=== PATIENT | female | born 1980 | race Caucasian/White ===

== ENCOUNTER → 2018-06-05 08:58 | Outpatient (POV) | payer MEDICAID, SELFPAY ==
[2018-06-05 09:23] VITALS: BP 137/77; PULSE 79; RESP 18; O2SAT 99
--- NOTE | 2018-06-05 09:42 | HMH.PMCON ---
Assessment and Plan (1) Diabetic neuropathy Current visit: Yes Status: Chronic Qualifiers: Diabetes mellitus type: type 2 Category: Medical Code(s): E11.40 - Type 2 diabetes mellitus with diabetic neuropathy, unspecified - Assessment and plan all Dx Assessment and Plan for all problems:: We will start her on gabapentin 300 mg 1 p.o. 4 times daily we will see her back in 2 months and reassess her symptoms at that time. [facility] #[id number] reviewed and appropriate. This note was dictated using voice recognition software and may contain errors or omissions HPI - Data of Consult Consult date: 06/05/18 Requesting Physician: Jeanette Dey APRN Primary Care Provider: Cassia Kerr - Consult Narrative Reason for consult: Neuropathy History of present illness: Ms. Vee is a 38 year old female who presents today for consultation in regards bilateral neuropathy. Patient was diagnosed at 16 with type 2 diabetes. Patient did not have good control of her sugars. Her last A1c was 11.7. Patient was started on gabapentin and this did well for her. Patient would like to continue with this. Patient states her control of her her sugars have improved immensely. CC: Jeanette Dey APRN [facility] History I have reviewed the patient's past medical history: Yes Medical History: Reports:: Diabetes Mellitus Type 2 Other Surgeries: Yes: Cholecystectomy, , Hysterectomy-Total - *Social History Smoking Status: Current every day smoker Tobacco Type: cigarettes # Packs/Day (cigarettes): 1 Alcohol Intake: never Occupational Status: other Housing: house - Psychiatric History Expresses thoughts of harming self/others: None Suicide Plan Description: No Plan *Family Hx:: Unable to obtain Review of Systems - Review of Systems ROS General: no recent weight change, no fever, no sleep disturbances Respiratory: no cough, no shortness of air, no recurring pulmonary infections Cardiovascular/Peripheral Vascular: No chest pain, No palpitations, no edema, no shortness of breath. Gastrointestinal: no incontinence, normal bowel movements reported Genitourinary: no incontinence Musculoskeletal: Bilateral foot pain Psychiatric: normal mood/ affect Neurological: [denies weakness in extremities], [denies balance issues] Objective Vital signs: Pulse Resp BP Pulse Ox 79 18 137/77 99 06/05/18 09:23 06/05/18 09:23 06/05/18 09:23 12/11/18 09:23 Narrative: Physical Exam General: Alert and oriented x3, no acute distress, pleasant and cooperative, [on room air] Lungs: Resps E/U, Symmetrical chest expansion, Eyes: PERRL Musculoskeletal: Range of motion bilateral feet somewhat guarded secondary to pain, deep tendon reflexes normal, strength in upper and lower extremities [5/5], slightly antalgic gait noted Neurological: speech clear, junior project manager equal, no gross sensory deficits Opioid Risk Tool - Opioid Risk Tool-Female Family hx alcohol abuse: N Family hx illegal drugs: N Family hx rx drug abuse: N Personal hx alcohol abuse: N Personal hx illegal drugs: N Personal hx rx drug abuse: Y Age: 16-45 Hx of sexual abuse: N Mental health issues-ADD,OCD,Bipolar, etc: N Hx of depression: Y Female Risk Score: 6
--- NOTE | 2018-06-05 09:45 | P.CONS_ITS ---
Assessment and Plan (1) Diabetic neuropathy Current visit: Yes Status: Chronic Qualifiers: Diabetes mellitus type: type 2 Category: Medical Code(s): E11.40 - Type 2 diabetes mellitus with diabetic neuropathy, unspecified - Assessment and plan all Dx Assessment and Plan for all problems:: We will start her on gabapentin 300 mg 1 p.o. 4 times daily we will see her back in 2 months and reassess her symptoms at that time. [facility] #[id number] reviewed and appropriate. This note was dictated using voice recognition software and may contain errors or omissions HPI - Data of Consult Consult date: 06/05/18 Requesting Physician: Jeanette Dey APRN Primary Care Provider: Cassia Kerr - Consult Narrative Reason for consult: Neuropathy History of present illness: Ms. Vee is a 38 year old female who presents today for consultation in regards bilateral neuropathy. Patient was diagnosed at 16 with type 2 diabetes. Patient did not have good control of her sugars. Her last A1c was 11.7. Patient was started on gabapentin and this did well for her. Patient would like to continue with this. Patient states her control of her her sugars have improved immensely. CC: Jeanette Dey APRN [facility] History I have reviewed the patient's past medical history: Yes Medical History: Reports:: Diabetes Mellitus Type 2 Other Surgeries: Yes: Cholecystectomy, , Hysterectomy-Total - *Social History Smoking Status: Current every day smoker Tobacco Type: cigarettes # Packs/Day (cigarettes): 1 Alcohol Intake: never Occupational Status: other Housing: house - Psychiatric History Expresses thoughts of harming self/others: None Suicide Plan Description: No Plan *Family Hx:: Unable to obtain Review of Systems - Review of Systems ROS General: no recent weight change, no fever, no sleep disturbances Respiratory: no cough, no shortness of air, no recurring pulmonary infections Cardiovascular/Peripheral Vascular: No chest pain, No palpitations, no edema, no shortness of breath. Gastrointestinal: no incontinence, normal bowel movements reported Genitourinary: no incontinence Musculoskeletal: Bilateral foot pain Psychiatric: normal mood/ affect Neurological: [denies weakness in extremities], [denies balance issues] Objective Vital signs: Pulse Resp BP Pulse Ox 79 18 137/77 99 06/05/18 09:23 06/05/18 09:23 06/05/18 09:23 12/11/18 09:23 Narrative: Physical Exam General: Alert and oriented x3, no acute distress, pleasant and cooperative, [on room air] Lungs: Resps E/U, Symmetrical chest expansion, Eyes: PERRL Musculoskeletal: Range of motion bilateral feet somewhat guarded secondary to pain, deep tendon reflexes normal, strength in upper and lower extremities [5/5], slightly antalgic gait noted Neurological: speech clear, flue lining dipper equal, no gross sensory deficits Opioid Risk Tool - Opioid Risk Tool-Female Family hx alcohol abuse: N Family hx illegal drugs: N Family hx rx drug abuse: N Personal hx alcohol abuse: N Personal hx illegal drugs: N Personal hx rx drug abuse: Y Age: 16-45 Hx of sexual abuse: N Mental health issues-ADD,OCD,Bipolar, etc: N Hx of depression: Y Female Risk Score: 6
== END ==
PROVIDERS: PCP Family Medicine; Visit Provider Clinical Nurse Specialist Family Health
DX: E11.40 Type 2 diabetes mellitus with diabetic neuropathy, unspecified (principal)
CPT/HCPCS: 99202

== ENCOUNTER → 2018-08-07 09:16 | Outpatient (POV) | payer MEDICAID, SELFPAY ==
--- NOTE | 2018-08-07 09:33 | P.CONS_ITS ---
[facility] Pain Management SOAP Note Subjective:: Patient is a pleasant 38-year-old white female who presents today for follow-up. Patient has bilateral neuropathy she was diagnosed at 16 with type 2 diabetes. She did not have good control of her sugars her last A1c was 11.7. Patient was started on gabapentin and she is done well with this but she would like to continue this. Her control of her her sugars has improved significantly. Patient currently on 300 mg gabapentin 1 p.o. 4 times daily. We will increases. She denies side effects. ROS General: no recent weight change, no fever, no sleep disturbances Respiratory: no cough, no shortness of air, no recurring pulmonary infections Cardiovascular/Peripheral Vascular: No chest pain, No palpitations, no edema, no shortness of breath. Gastrointestinal: no incontinence, normal bowel movements reported Genitourinary: no incontinence Musculoskeletal: Bilateral leg pain Psychiatric: normal mood/ affect, [denies depression], [denies anxiety] Neurological: [denies weakness in extremities], [denies balance issues] Objective:: Physical Exam General: Alert and oriented x3, no acute distress, pleasant and cooperative, [on room air] Lungs: Resps E/U, Symmetrical chest expansion, Eyes: PERRL Musculoskeletal: Flexion and extension of lumbar spine somewhat guarded secondary to pain, deep tendon reflexes normal, strength in upper and lower extremities [5/5], normal gait noted Neurological: speech clear, hand fretted instrument maker equal, no gross sensory deficits Assessment:: Diabetic neuropathy Plan:: We will increase the patient's gabapentin to 600 mg 1 p.o. 3 times daily we will see her back in 3 months. Patient's been a call us if she has any issues prior to her next appointment. Patient is continuing on Suboxone therapy. We will continue to monitor this. Dr. Meyers has reviewed this note and agrees with this plan of care. This note was dictated using voice recognition software and may contain errors or omissions
[2018-08-07 09:46] VITALS: BP 131/80; PULSE 70; RESP 18; O2SAT 99; BMI 19.2
== END ==
PROVIDERS: PCP Family Medicine; Visit Provider Clinical Nurse Specialist Family Health
DX: E11.40 Type 2 diabetes mellitus with diabetic neuropathy, unspecified (principal)
CPT/HCPCS: 99213

== ENCOUNTER → 2018-11-05 10:03 | Outpatient (POV) | payer SELFPAY ==
[2018-11-05 10:19] VITALS: BP 137/92; PULSE 94; RESP 18; O2SAT 98
--- NOTE | 2018-11-05 10:22 | P.CONS_ITS ---
[facility] Pain Management SOAP Note Subjective:: Patient is a pleasant 38-year-old white female who presents today for follow-up. Patient has bilateral neuropathy after being diagnosed at 16 with type 2 diabetes. She has done well with controlling her sugar at this point. Patient is on gabapentin and is doing well she is on 600 mg 1 p.o. 3 times daily she denies side effects. Patient has weaned herself off Suboxone. ROS General: no recent weight change, no fever, no sleep disturbances Respiratory: no cough, no shortness of air, no recurring pulmonary infections Cardiovascular/Peripheral Vascular: No chest pain, No palpitations, no edema, no shortness of breath. Gastrointestinal: no incontinence, normal bowel movements reported Genitourinary: no incontinence Musculoskeletal: Bilateral leg pain Psychiatric: normal mood/ affect Neurological: [denies weakness in extremities], [denies balance issues] Objective:: Physical Exam General: Alert and oriented x3, no acute distress, pleasant and cooperative, [on room air] Lungs: Resps E/U, Symmetrical chest expansion, Eyes: PERRL Musculoskeletal: Flexion and extension of lumbar spine somewhat guarded secondary to pain, deep tendon reflexes normal, strength in upper and lower extremities [5/5], normal gait noted Neurological: speech clear, 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 3 times daily we will see her back in 3 months reassess her symptoms at that time she is been instructed to call the office if she has any issues prior to her next appointment. Dr. Meyers has reviewed this note and agrees with this plan of care. This note was dictated using voice recognition software and may contain errors or omissions
== END ==
PROVIDERS: PCP Family Medicine; Visit Provider Clinical Nurse Specialist Family Health
DX: E11.40 Type 2 diabetes mellitus with diabetic neuropathy, unspecified (principal)
CPT/HCPCS: 99212

== ENCOUNTER → 2019-09-30 11:35 | Outpatient (POV) | payer MEDICAID, SELFPAY ==
--- NOTE | 2019-09-30 11:39 | HMH.VVPMSO ---
[facility] PM Virtual Visit SOAP Consent for virtual visit:: With the recent concerns about the COVID-19, we are trying to minimize exposure to you by shifting to telehealth appointments whenever possible. It restricts me from seeing you in person, but the trade off is protecting you during this pandemic. Can you see and hear me okay, and do you consent to this option? If not, I would be happy to see if we can reschedule your appointment in the future, when feasible. Has patient consented to this virtual visit?: Yes Subjective:: Patient is a pleasant 39-year-old white female who presents today for follow-up. Patient has bilateral neuropathy after being diagnosed at 16 with type 1 diabetes. She is controlling her sugars at this time. Patient is currently in a Suboxone 6 clinic. She rates her pain today a 6 out of 10. Mostly in her bilateral hands and feet. She had a recent EMG showing that she had a left carpal tunnel syndrome. She is unable to do the carpal tunnel surgery to the current pandemic. Patient has been on gabapentin for quite some time with no real relief. Patient and I discussed changing her medication to Lyrica she is interested in pursuing this. Patient states that her hands and feet feel like they are on fire. ROS General: no recent weight change, no fever, no sleep disturbances Respiratory: no cough, no shortness of air, no recurring pulmonary infections Cardiovascular/Peripheral Vascular: No chest pain, No palpitations, no edema, no shortness of breath. Gastrointestinal: no new onset incontinence, normal bowel movements reported Genitourinary: no new onset incontinence Musculoskeletal: Foot pain, arm pain, hand pain Psychiatric: normal mood/ affect Neurological: [denies new onset weakness in extremities], [denies new onset balance issues] Objective:: Physical exam: Constitutional: Healthy appearing, well-developed, alert, in no acute distress Psychiatric: Judgment and insight intact, Alert and oriented x4 Mood and affect: Mood normal, affect appropriate Head and face: Inspection: Normocephalic atraumatic, extraocular movement intact Respiratory: Breathing nonlabored, nondyspneic Cardiovascular: No cyanosis, clubbing, or edema observed Skin: Head and neck: Skin with no lesions or rash observed Gait: Able to walk without assistive device: Able to heel and toe walk Neurologic: Sensation grossly intact per patient Musculoskeletal: Patient has good range of motion lumbar spine. Patient has good range of motion with both feet and hands Assessment:: peripheral neuropathy/diabetic neuropathy Plan:: We will start the patient on Lyrica 75 mg 1 p.o. twice daily. We will give her 1 month prescription and see her back for a telehealth visit in 1 month. I also discussed with her when she goes to her Suboxone clinic in 1 week I would like a written letter faxed to our office stating that they understand that we are prescribing her Lyrica. This encounter was performed as a telemedicine visit via secure 2 way video and audio to minimize risk and transmission of Covid-19. The patient and we understand the limitations of a telemedicine visit including inability to check reflexes, possibly missing subtle findings on physical exam. Alternative options were presented to the patient and the patient elected to proceed with the visit. We specifically discussed risk factors for Covid-19 including age, heart or lung disease, diabetes, immunosuppression and travel. We also discussed that NSAIDs may worsen Covid-19 infection symptoms and that they should not be used to treat Covid-19 symptoms. Patient was also informed that corticosteroids in any form oral or injectable will decrease immune response and may increase risk of Covid-[address] Meyers has reviewed this patient's chart and this note and agrees with plan of care. Patient has been instructed to call the office if they have any issues prior to the next appointme
== END ==
PROVIDERS: Visit Provider Clinical Nurse Specialist Family Health
DX: E10.42 Type 1 diabetes mellitus with diabetic polyneuropathy (principal); G56.02 Carpal tunnel syndrome, left upper limb
CPT/HCPCS: 99211

== ENCOUNTER → 2019-10-29 10:13 | Outpatient (POV) | payer MEDICAID, SELFPAY ==
--- NOTE | 2019-10-29 12:48 | HMH.VVPMSO ---
[facility] PM Virtual Visit SOAP Consent for virtual visit:: With the recent concerns about the COVID-19, we are trying to minimize exposure to you by shifting to telehealth appointments whenever possible. It restricts me from seeing you in person, but the trade off is protecting you during this pandemic. Can you see and hear me okay, and do you consent to this option? If not, I would be happy to see if we can reschedule your appointment in the future, when feasible. Has patient consented to this virtual visit?: Yes Subjective:: Is a pleasant 39-year-old white female who presents today for follow-up after beginning Lyrica 75 mg 1 p.o. back twice daily. She states is been much more beneficial than her gabapentin. Of note she did also fill her gabapentin I questioned her about this she stated that she picked everything up at the pharmacy and this was included. I discussed with her that she is not to take both of them together. She states she understands we will continue to monitor this. Patient would like to increase this to 150 mg 1 p.o. twice daily I do believe this would probably benefit her more so than her current dose. She is in a Suboxone clinic. When she returns to the Suboxone clinic she will be receiving a letter stating that they understand that we are writing her Lyrica. She has a recent EMG showing she has left carpal tunnel syndrome she states that her feet and hands feel like they are on fire at all times. She was diagnosed with type 1 diabetes at 16 years old. It was poorly controlled until recently. ROS General: no recent weight change, no fever, no sleep disturbances Respiratory: no cough, no shortness of air, no recurring pulmonary infections Cardiovascular/Peripheral Vascular: No chest pain, No palpitations, no edema, no shortness of breath. Gastrointestinal: no new onset incontinence, normal bowel movements reported Genitourinary: no new onset incontinence Musculoskeletal: Bilateral foot and hand pain Psychiatric: normal mood/ affect Neurological: [denies new onset weakness in extremities], [denies new onset balance issues] Objective:: Physical exam: Constitutional: Healthy appearing, well-developed, alert, in no acute distress Psychiatric: Judgment and insight intact, Alert and oriented x4 Mood and affect: Mood normal, affect appropriate Head and face: Inspection: Normocephalic atraumatic, extraocular movement intact Respiratory: Breathing nonlabored, nondyspneic Cardiovascular: No cyanosis, clubbing, or edema observed Skin: Head and neck: Skin with no lesions or rash observed Gait: Able to walk without assistive device: Able to heel and toe walk Neurologic: Sensation grossly intact per patient Musculoskeletal: Patient has good range of motion lumbar spine, patient has good range of motion both feet and hands Assessment:: Peripheral neuropathy/diabetic neuropathy Plan:: We will increase her Lyrica 250 mg 1 p.o. twice daily. I will follow-up with her in 1 month reassess her at that time she is been instructed to call the office if she has any issues prior to her next appointment. This encounter was performed as a telemedicine visit via secure 2 way video and audio to minimize risk and transmission of Covid-19. The patient and we understand the limitations of a telemedicine visit including inability to check reflexes, possibly missing subtle findings on physical exam. Alternative options were presented to the patient and the patient elected to proceed with the visit. We specifically discussed risk factors for Covid-19 including age, heart or lung disease, diabetes, immunosuppression and travel. We also discussed that NSAIDs may worsen Covid-19 infection symptoms and that they should not be used to treat Covid-19 symptoms. Patient was also informed that corticosteroids in any form oral or injectable will decrease immune response and may increase risk of Covid-[address] Meyers has reviewed
== END ==
PROVIDERS: Visit Provider Clinical Nurse Specialist Family Health
DX: E11.42 Type 2 diabetes mellitus with diabetic polyneuropathy (principal)
CPT/HCPCS: 99212